=== PATIENT | male | born 1945 | race Two or more races ===

== ENCOUNTER 2020-04-28 06:39 | Inpatient (IN) | payer OTHER ==
[~2020-04-28] VITALS: Ht 188 cm; Wt 93.0 kg
[2020-04-29] MEDS ORDERED: STIOLTO RESPIMAT4 GM (08:36)
[2020-04-29] MEDS ORDERED: LOSARTAN POTASS50 MG (08:36)
[2020-04-29] MEDS ORDERED: HYDROCHLOROTH12.5 MG (08:36)
[2020-04-29] MEDS ORDERED: TAMSULOSIN HCL0.4 MG (08:36)
[2020-04-29] MEDS ORDERED: SULINDAC200 MG (08:36)
[2020-04-29] MEDS ORDERED: OMEPRAZOLE20 MG (08:36)
[2020-04-29] MEDS ORDERED: LEVALBUTEROL TA15 GM (08:36)
[2020-04-29] MEDS ORDERED: SIMVASTATIN40 MG (08:37)
[2020-04-30] MEDS ORDERED: PERCOCET 5-3251 EACH PO (16:50)
[2020-04-30] MEDS ORDERED: ELIQUIS2.5 MG PO (16:50)
[2020-04-30] MEDS ORDERED: DUI500 PO (16:50)
== END 2020-04-30 17:52 | DRG 470 ==
LOC: CIR.AMB 06:39 → SURH 12:18 → O/R 12:18 → SURH 14:30 → CIR.AMB 15:00 → SURH 04-30 17:52
PROVIDERS: ADMIT Orthopaedic Surgery; ATTEND Orthopaedic Surgery
PROC: 0QND0ZZ Release Right Patella, Open Approach (ICD-10-PCS; 2020-04-28)
PROC: 0SRC0J9 Replacement of Right Knee Joint with Synthetic Substitute, Cemented, Open Approach (ICD-10-PCS; principal; 2020-04-28 15:00)
DX: M17.11 Unilateral primary osteoarthritis, right knee (principal); D62 Acute posthemorrhagic anemia; M22.11 Recurrent subluxation of patella, right knee; I10 Essential (primary) hypertension; G47.33 Obstructive sleep apnea (adult) (pediatric)